=== PATIENT | male | born 1980 | race Caucasian/White ===

== ENCOUNTER 2020-12-06 15:13 | Emergency (ER) | payer OTHER ==
[~2020-12-06] VITALS: Ht 188 cm; Wt 95.2 kg
[2020-12-06] MEDS ORDERED: TYLENOL325 MG PO (16:21)
[2020-12-06] MEDS ORDERED: ADVIL200 M1 PO (16:21)
[2020-12-06] MEDS ORDERED: PRILOSEC OTC20 MG PO (16:31)
--- NOTE | 2020-12-06 20:49 | EKG ---
[facility] [address] [facility] [place], [place] [address] Signed Normal sinus rhythm Normal ECG No previous ECGs available Confirmed by SIS WIGGINS MD [id number] on 12/06/2020 8:49:25 PM Electronically Signed By: SIS WIGGINS MD 12/06/202048 PATIENT NAME: ALFRED TRAORE MABEL Electrocardiogram DATE OF : 82 PHYSICIAN: SIS WIGGINS MD REPORT #: [id number] REPORT IS CONFIDENTIAL AND NOT TO BE RELEASED WITHOUT AUTHORIZATION
== END 2020-12-06 16:45 | disposition home or self-care (01) ==
LOC: ED 15:13
DX: R07.81 Pleurodynia (principal); F17.200 Nicotine dependence, unspecified, uncomplicated
CPT/HCPCS: 71045; 80053; 83735; 84484; 85025; 93005; 93010; 99285-25

== ENCOUNTER 2021-06-01 07:17 | Emergency (ER) | payer OTHER ==
[~2021-06-01] VITALS: Ht 188 cm; Wt 88.1 kg
[~2021-06-01 07:17] MED LIST: ADVIL200 M1 PO; PRILOSEC OTC20 MG PO; TYLENOL325 MG PO
[2021-06-01] MEDS ORDERED: HYDROCODON-ACE1 EA10 PO (14:44)
[2021-06-01] MEDS ORDERED: ONDANSETRON ODT4 MG PO (14:45)
== END 2021-06-01 15:02 | disposition home or self-care (01) ==
LOC: ED 07:17
DX: N13.2 Hydronephrosis with renal and ureteral calculous obstruction (principal); F17.200 Nicotine dependence, unspecified, uncomplicated; Z88.8 Allergy status to other drugs, medicaments and biological substances
CPT/HCPCS: 74176; 76870; 80048; 81001; 85025; 96374; 96375; 96376; 99284-25; J1170; J1790; J2405; J7030

== ENCOUNTER 2022-07-01 18:30 | Emergency (ER) | payer OTHER ==
[~2022-07-01] VITALS: Ht 188 cm; Wt 88.0 kg
[~2022-07-01 18:30] MED LIST changes: +DOXYCYCLINE HY100 MG PO; +HYDROCODON-ACE1 EA10 PO; +ONDANSETRON ODT4 MG PO
[2022-07-01] MEDS ORDERED: CEPHALEXIN500 M1 PO (20:11)
[2022-07-01] MEDS ORDERED: HYDROCODON-ACE1 EA10 PO (20:11)
== END 2022-07-01 20:40 | disposition home or self-care (01) ==
LOC: ED 18:30
DX: S62.636B Displaced fracture of distal phalanx of right little finger, initial encounter for open fracture (principal); F17.200 Nicotine dependence, unspecified, uncomplicated; Z23 Encounter for immunization; Z88.8 Allergy status to other drugs, medicaments and biological substances; W23.0XXA Caught, crushed, jammed, or pinched between moving objects, initial encounter; Y99.0 Civilian activity done for income or pay
CPT/HCPCS: 12002; 73140; 90471; 90714; 99283-25; A9270

== ENCOUNTER 2023-04-14 10:01 | Emergency (ER) | payer OTHER ==
[~2023-04-14] VITALS: Ht 188 cm; Wt 91.5 kg
[~2023-04-14 10:01] MED LIST changes: +CEPHALEXIN500 M1 PO; +METHOCARBAMOL500 MG PO
[2023-04-14 10:44] VITALS: BP 121/90
== END 2023-04-14 10:46 | disposition home or self-care (01) ==
LOC: ED 10:01
DX: S00.81XA Abrasion of other part of head, initial encounter (principal); F17.200 Nicotine dependence, unspecified, uncomplicated; Z88.3 Allergy status to other anti-infective agents; Z88.8 Allergy status to other drugs, medicaments and biological substances; W22.8XXA Striking against or struck by other objects, initial encounter; Y99.0 Civilian activity done for income or pay
CPT/HCPCS: 99283; A9270

== ENCOUNTER 2023-09-18 14:42 | Emergency (ER) | payer OTHER ==
[~2023-09-18] VITALS: Ht 188 cm; Wt 84.5 kg
[2023-09-18] MEDS ORDERED: IBUPROFEN 600 MG TAB PO ONE (17:00)
[2023-09-18 17:08] VITALS: BP 95/62
== END 2023-09-18 17:07 | disposition home or self-care (01) ==
LOC: ED 14:42
DX: S60.211A Contusion of right wrist, initial encounter (principal); F17.200 Nicotine dependence, unspecified, uncomplicated; W01.0XXA Fall on same level from slipping, tripping and stumbling without subsequent striking against object, initial encounter; Z88.8 Allergy status to other drugs, medicaments and biological substances
CPT/HCPCS: 73110; 99283-25; A9270

== ENCOUNTER 2024-03-15 21:12 | Emergency (ER) | payer OTHER ==
[~2024-03-15] VITALS: Ht 188 cm; Wt 82.0 kg
[2024-03-15 21:57] VITALS: BP 122/87
== END 2024-03-15 21:57 | disposition home or self-care (01) ==
LOC: ED 21:12
DX: S60.032A Contusion of left middle finger without damage to nail, initial encounter (principal); W23.0XXA Caught, crushed, jammed, or pinched between moving objects, initial encounter; F17.200 Nicotine dependence, unspecified, uncomplicated; Z88.8 Allergy status to other drugs, medicaments and biological substances
CPT/HCPCS: 73140; 99283

== ENCOUNTER 2024-04-20 11:31 | Emergency (ER) | payer OTHER ==
[~2024-04-20] VITALS: Ht 188 cm; Wt 84.6 kg
[2024-04-20] MEDS ORDERED: ONDANSETRON ODT8 MG PO (12:15)
[2024-04-20 12:23] VITALS: BP 121/87
== END 2024-04-20 12:23 | disposition home or self-care (01) ==
LOC: ED 11:31
DX: B34.9 Viral infection, unspecified (principal); F17.200 Nicotine dependence, unspecified, uncomplicated; Z88.8 Allergy status to other drugs, medicaments and biological substances
CPT/HCPCS: 99283